=== PATIENT | male | born 1970 | race Caucasian/White ===

== ENCOUNTER 2017-08-09 10:59 | Inpatient (IN) | payer OTHER ==
[2017-08-09] MEDS ORDERED: NORMAL SALINE 1000 ML 1,000 ML IV PRN ×2 (11:28→14:46)
[2017-08-09] MEDS ORDERED: ONDANSETRON HCL INJ/PF 4 MG/2 ML SDV IV ONE (11:28)
[2017-08-09] MEDS ORDERED: MORPHINE SULFATE 10 MG/ML INJ IV ONE ×2 (11:28→14:44)
--- NOTE | 2017-08-09 11:38 | ER Document Report ---
ED Medical Screen (RME) - General Chief Complaint: Abdominal Pain Stated Complaint: ABDOMINAL PAIN Time Seen by Provider: 08/09/17 11:09 Mode of Arrival: Ambulatory Information source: Patient TRAVEL OUTSIDE OF THE [place] IN LAST 30 DAYS: No - HPI Patient complains to provider of: Left lower quadrant abdominal pain Notes: 08/09/17 11:38 Patient is a 47-year-old male with a history of left lower quadrant abdominal pain 4 days, history of diverticulitis in the past - Related Data Allergies/Adverse Reactions: meperidine [From Demerol] Allergy (Verified 08/09/17 11:08) Past Medical History - Social History Chew tobacco use (# tins/day): Yes Frequency of alcohol use: None Drug Abuse: None Renal/ Medical History: Denies: Hx Peritoneal Dialysis Past Surgical History: Reports: Hx Appendectomy, Hx Orthopedic Surgery, Hx Testicular Surgery - Immunizations Hx Diphtheria, Pertussis, Tetanus Vaccination: Yes Physical Exam - Vital signs Vitals: Temp Pulse Resp BP Pulse Ox 98.6 F 86 16 147/80 H 97 08/09/17 11:02 08/09/17 11:02 08/09/17 11:02 08/09/17 11:02 08/09/17 11:02 Course - Vital Signs Vital signs: Temp Pulse Resp BP Pulse Ox 98.6 F 86 16 147/80 H 97 08/09/17 11:02 08/09/17 11:02 08/09/17 11:02 08/09/17 11:02 08/09/17 11:02
[2017-08-09 12:12] LABS: ABSOLUTE BASOPHILS # (AUTO) 0.2 10^3/uL (0.0-0.2); ABSOLUTE EOSINOPHILS # (AUTO) 0.2 10^3/uL (0.0-0.6); ABSOLUTE LYMPHOCYTES (AUTO) 1.9 10^3/uL (0.5-4.7); ABSOLUTE MONOCYTES (AUTO) 1.5 10^3/uL (0.1-1.4); BASOPHILS % (AUTO) 1.1 % (0-2); EOSINOPHILS % (AUTO) 1.2 % (0-6); HEMATOCRIT 50.7 % (37.9-51.0); HEMOGLOBIN 17.6 g/dL (13.5-17.0); HGB HCT DIFFERENCE 2.1; LYMPHOCYTES % (AUTO) 12.8 % (13-45); MEAN CORPUSCULAR HEMOGLOBIN 30.1 pg (27.0-33.4); MEAN CORPUSCULAR HGB CONC 34.8 g/dL (32.0-36.0); MEAN CORPUSCULAR VOLUME 87 fl (80-97); MONOCYTES % (AUTO) 10.3 % (3-13); RED BLOOD COUNT 5.86 10^6/uL (4.35-5.55); SEGMENTED NEUTROPHILS % (AUTO) 74.6 % (42-78); WHITE BLOOD COUNT 14.7 10^3/uL (4.0-10.5)
[2017-08-09 12:21] LABS: APPEARANCE,URINE CLEAR; BILIRUBIN,URINE NEGATIVE (NEGATIVE); GLUCOSE, URINE NEGATIVE (NEGATIVE); KETONES,URINE NEGATIVE (NEGATIVE); LEUKOCYTE ESTERASE,URINE NEGATIVE (NEGATIVE); NITRITE,URINE NEGATIVE (NEGATIVE); PROTEIN,URINE NEGATIVE (NEGATIVE); URINE SPECIFIC GRAVITY 1.026; UROBILINOGEN,URINE NEGATIVE mg/dL (<2.0)
[2017-08-09 12:30] LABS: ALANINE AMINOTRANSFERASE 38 U/L (21-72); ALBUMIN 4.7 g/dL (3.5-5.0); ALKALINE PHOSPHATASE 68 U/L (38-126); ANION GAP 11 (5-19); ASPARTATE AMINO TRANSFERASE 28 U/L (17-59); BILIRUBIN,DIRECT 0.7 mg/dL (0.0-0.4); BILIRUBIN,TOTAL 2.4 mg/dL (0.2-1.3); BLOOD UREA NITROGEN 14 mg/dL (7-20); CALCIUM 10.1 mg/dL (8.4-10.2); CARBON DIOXIDE 26 mmol/L (22-30); CHLORIDE 105 mmol/L (98-107); CREATININE RESULT 0.97 mg/dL (0.52-1.25); GLUCOSE 106 mg/dL (75-110); LIPASE 70.1 U/L (23-300); POTASSIUM 4.2 mmol/L (3.6-5.0); SODIUM 141.7 mmol/L (137-145)
--- NOTE | 2017-08-09 12:35 | ER Document Report ---
ED General - General Chief Complaint: Abdominal Pain Stated Complaint: ABDOMINAL PAIN Time Seen by Provider: 08/09/17 11:09 Mode of Arrival: Ambulatory TRAVEL OUTSIDE OF THE [place] IN LAST 30 DAYS: No - HPI Notes: Patient is a 47-year-old male who presents the ED complaining of left lower quadrant pain 4 days. Patient states that the pain is relatively constant and sharp. The pain does not radiate. Movement and pressure make the pain worse. He has not found anything that improves his pain. Patient does not note eating any popcorn or seeds. Patient has a history of diverticulitis with the last episode about 10 years ago which required hospitalization. Patient states that the pain now mimics the pain experienced in the past. Patient is otherwise still eating and drinking without any problems. He still urinating and having normal bowel movements. His last colonoscopy was about 10 years ago during his previous colon issues. He has not noticed any hematochezia or melena. Denies any headache, fever, neck pain, URI, sore throat, chest pain, palpitations, syncope, cough, shortness of breath, wheeze, dyspnea, nausea/vomiting/diarrhea, urinary retention, dysuria, hematuria, back pain, loss of control of bowel or bladder, numbness/tingling, saddle anesthesia, muscle paralysis/weakness, or rash. Denies recent illness. - Related Data Allergies/Adverse Reactions: meperidine [From Demerol] Allergy (Verified 08/09/17 11:08) Past Medical History - General Information source: Patient - Social History Smoking Status: Never Smoker Chew tobacco use (# tins/day): Yes Frequency of alcohol use: None Drug Abuse: None Family History: Reviewed & Not Pertinent Patient has suicidal ideation: No Patient has homicidal ideation: No Renal/ Medical History: Denies: Hx Peritoneal Dialysis Past Surgical History: Reports: Hx Appendectomy, Hx Orthopedic Surgery, Hx Testicular Surgery - Immunizations Hx Diphtheria, Pertussis, Tetanus Vaccination: Yes Review of Systems - Review of Systems Notes: REVIEW OF SYSTEMS: CONSTITUTIONAL : Denies fever, chills, or sweats. Denies recent illness. EENT: Denies eye, ear, throat, or mouth pain or symptoms. Denies nasal or sinus congestion or discharge. Denies throat, tongue, or mouth swelling or difficulty swallowing. CARDIOVASCULAR: Denies chest pain. Denies palpitations or racing or irregular heart beat. Denies ankle edema. RESPIRATORY: Denies cough, cold, or chest congestion. Denies shortness of breath, difficulty breathing, or wheezing. GASTROINTESTINAL: see hpi GENITOURINARY: Denies difficulty urinating, painful urination, burning, frequency, blood in urine, or discharge. MUSCULOSKELETAL: Denies back or neck pain or stiffness. Denies joint pain or swelling. SKIN: Denies rash, lesions or sores. NEUROLOGICAL: Denies confusion or altered mental status. Denies passing out or loss of consciousness. Denies dizziness or lightheadedness. Denies headache. Denies weakness or paralysis or loss of use of either side. Denies problems with gait or speech. Denies sensory loss, numbness, or tingling. ALL OTHER SYSTEMS REVIEWED AND NEGATIVE. Dictation was performed using [email or web address] voice recognition software Physical Exam - Vital signs Vitals: Temp Pulse Resp BP Pulse Ox 98.6 F 86 16 147/80 H 97 08/09/17 11:02 08/09/17 11:02 08/09/17 11:02 08/09/17 11:02 08/09/17 11:02 Notes: PHYSICAL EXAMINATION: GENERAL: Well-appearing, well-nourished and in no acute distress. Eyes: nonicteric. PERRLA. EOMI b/l. NECK: Normal range of motion, supple without lymphadenopathy. No rigidity. LUNGS: Breath sounds clear to auscultation bilaterally and equal. No wheezes rales or rhonchi. HEART: Regular rate and rhythm without murmurs, rubs, gallops. ABDOMEN: Soft, nondistended abdomen. No rebound. No masses appreciated. Normal bowel sounds present. No CVA tenderness bilaterally. + tenderness to the LLQ with mild guarding. Musculoskeletal: LE's b/l: FROM to passive/active. Strength 5+/5. No focal deficits. Extremities: No cyanosis, clubbing, or edema b/l. Peripheral pulses 2+. Capillary refill less than 3 seconds. NEUROLOGICAL: Normal speech, normal gait. Normal sensory, motor exams PSYCH: Normal mood, normal affect. SKIN: Warm, Dry, normal turgor, no rashes or lesions noted. Course - Re-evaluation Re-evalutation: 08/09/17 14:46 Patient is an afebrile, well-hydrated, 47-year-old male who presents the ED with diverticulitis without perforation or abscess. Vitals are stable. PE otherwise unremarkable. Patient does have a white count of 14.7. Reviewed case with Dr. Lyman (surgeon) who recommends medical admission and he will consult in the ED although he does not believe surgery is warranted at this time. Morphine IV given. Cipro/Flagyl IV started. Pt made NPO. Fluids running. Lorraine Weiss NP (hospitalist) accepted patient to medical floor. - Vital Signs Vital signs: Temp Pulse Resp BP Pulse Ox 98.6 F 86 16 147/80 H 97 08/09/17 11:02 08/09/17 11:02 08/09/17 11:02 08/09/17 11:02 08/09/17 11:02 - Laboratory Result Diagrams: 08/09/17 11:43 08/09/17 11:43 Laboratory results interpreted by me: 08/09/17 08/09/17 08/09/17 11:43 11:43 11:43 WBC 14.7 H RBC 5.86 H Hgb 17.6 H Lymphocytes % 12.8 L Absolute Neutrophils 11.0 H Absolute Monocytes 1.5 H Total Bilirubin 2.4 H Direct Bilirubin 0.7 H Urine Blood SMALL H Discharge - Discharge Clinical Impression: Diverticulitis Qualifiers: Diverticulitis site: unspecified part of intestinal tract Diverticulitis bleeding: without bleeding Diverticulitis complication: without perforation or abscess Qualified Code(s): K57.92 - Diverticulitis of intestine, part unspecified, without perforation or abscess without bleeding Condition: Stable Disposition: ADMITTED INPATIENT Admitting Provider: Hospitalist - Lorraine Weiss NP Unit Admitted: Medical Floor
--- NOTE | 2017-08-09 14:03 | RADIOLOGY REPORT (SQ) ---
EXAM DESCRIPTION: CT ABD/PELVIS WITH IV ONLY COMPLETED DATE/TIME: 08/09/2017 1:09 pm REASON FOR STUDY: LLQ pain COMPARISON: None. TECHNIQUE: CT scan of the abdomen and pelvis performed using helical scanning technique with dynamic intravenous contrast injection. No oral contrast. Images reviewed with lung, soft tissue, and bone windows. Reconstructed coronal and sagittal MPR images reviewed. Delayed images for evaluation of the urinary system also acquired. All images stored on PACS. All CT scanners at this facility use dose modulation, iterative reconstruction, and/or weight based d osing when appropriate to reduce radiation dose to as low as reasonably achievable (ALARA). [facility]: Dose Right [facility]: CareDose [facility]: Dose Right [facility]: Teradose 4D [facility]: [employer] CONTRAST TYPE AND DOSE: contrast/concentration: Isovue 370.00 mg/ml; Total Contrast Delivered: 91.0 ml; Total Saline Delivered: 60.0 ml RENAL FUNCTION: Creatinine 0.97 RADIATION DOSE: Up-to-date CT equipment and radiation dose reduction techniques were employed. CTDIv ol: 14.9 - 19.2 mGy. DLP: 1901 mGy-cm.. LIMITATIONS: None. FINDINGS: The distal descending and proximal sigmoid colon are abnormal, with wall thickening, lumin al narrowing, and stranding in the surrounding fat from diverticulitis. No adjacent abscess. No maxx e intraperitoneal air. Trace pelvic cul-de-sac fluid. These changes are best shown on axial images 52-70, and coronal images 38-42. Remainder of the gastrointestinal tract is otherwise unremarkable. Post appendectomy. LOWER CHEST: No significant findings. No nodules or infiltrates. LIVER: Normal size. No masses. No dilated ducts. There are multiple less than 5 mm hypodensities in the liver loop most likely tiny hepatic cysts. SPLEEN: Normal size. No focal lesions. PANCREAS: No masses. No significant calcifications. No adjacent inflammation or peripancreatic fluid collections. Pancreatic duct not dilated. GALLBLADDER: No identified stones by CT criteria. No inflammatory changes to suggest cholecystitis. ADRENAL GLANDS: No significant masses or asymmetry. RIGHT KIDNEY AND URETER: No solid masses. 1 cm right lower pole renal cortical cyst No significant c alcifications. No hydronephrosis or hydroureter. LEFT KIDNEY AND URETER: No solid masses. No significant calcifications. No hydronephrosis or hydr oureter. AORTA AND VESSELS: No aneurysm. No dissection. Renal arteries, SMA, celiac without stenosis. RETROPERITONEUM: No retroperitoneal adenopathy, hemorrhage or masses. BOWEL AND PERITONEAL CAVITY: As above. APPENDIX: Surgically absent PELVIS: No mass. Trace cul-de-sac fluid. Normal bladder. ABDOMINAL WALL: No masses. No hernias. BONES: Degenerative disc changes lower lumbar spine. OTHER: No other significant finding. IMPRESSION: Distal descending/ proximal sigmoid colon diverticulitis. No abscess. TECHNICAL DOCUMENTATION: JOB ID: [id number] Quality ID # [id number]: Final reports with documentation of one or more dose reduction techniques (e.g., Au tomated exposure control, adjustment of the mA and/or kV according to patient size, use of iterative reconstruction technique) 2010 [employer]- All Rights Reserved
[2017-08-09] MEDS ORDERED: CIPROFLOXACIN 400 MG/D5W RTU 400 MG/200 ML RTUPB IV ONE (14:13)
[2017-08-09] MEDS ORDERED: METRONIDAZOLE 500 MG/NS RTU 100 ML IV ONE (14:15)
[2017-08-09] MEDS ORDERED: NORMAL SALINE 1000 ML 1,000 ML IV ONE (14:19)
[2017-08-09] MEDS ORDERED: ONDANSETRON HCL INJ/PF 4 MG/2 ML SDV IV PRN (14:46)
[2017-08-09] MEDS ORDERED: ACETAMINOPHEN 325 MG TABLET PO PRN (14:46)
[2017-08-09] MEDS ORDERED: MORPHINE SULFATE 10 MG/ML INJ IV PRN (14:46)
[2017-08-09] MEDS: HYDROMORPHONE HCL INJ/PF 2 MG/ML AMPULE IV PRN ×2 (15:47→20:28)
--- NOTE | 2017-08-09 15:59 | PDOC H&P ---
History of Present Illness Admission Date/PCP: 08/09/17 15:30 CHAITANYA MUHAMMAD MD Patient complains of: Left lower quadrant abdominal pain History of Present Illness: HORACE GREENBERG is a 47 year old male who presents to [facility] ED complaining of left lower quadrant pain 4 days. Patient states that the pain is relatively constant and sharp. The pain does not radiate. Movement and pressure make the pain worse. He has not found anything that improves his pain. Patient does not note eating any popcorn or seeds. Patient has a history of diverticulitis with the last episode about 10 years ago which required hospitalization. Patient states that the pain now mimics the pain experienced in the past. Patient is otherwise still eating and drinking without any problems. He still urinating and having normal bowel movements. His last colonoscopy was about 10 years ago during his previous colon issues. He has not noticed any hematochezia or melena. Denies any headache, fever, neck pain, URI, sore throat, chest pain, palpitations, syncope, cough, shortness of breath, wheeze, dyspnea, nausea/vomiting/diarrhea, urinary retention, dysuria, hematuria, back pain, loss of control of bowel or bladder, numbness/tingling, saddle anesthesia, muscle paralysis/weakness, or rash. Denies recent illness. Past Medical History Cardiac Medical History: Reports: None Pulmonary Medical History: Reports: None EENT Medical History: Reports: None Neurological Medical History: Reports: None Endocrine Medical History: Reports: None Renal/ Medical History: Reports: None Malignancy Medical History: Reports: None GI Medical History: Reports: Other - Prior history of diverticulitis Musculoskeltal Medical History: Reports: None Skin Medical History: Reports: None Psychiatric Medical History: Reports: None Traumatic Medical History: Reports: None Hematology: Reports: None Infectious Medical History: Reports: None Past Surgical History Past Surgical History: Reports: Appendectomy, Orthopedic Surgery Social History Information Source: Patient Lives with: Family Smoking Status: Former Smoker Number of Years Smokin Last Time Smoked: 4 yrs ago Frequency of Alcohol Use: Occasional Hx Recreational Drug Use: No Hx Prescription Drug Abuse: No - Advance Directive Resuscitation Status: Full Code Surrogate healthcare decision maker:: , Mamta Family History Family History: Hypertension, Thyroid Disfunction Parental Family History Reviewed: Yes Children Family History Reviewed: Yes Sibling(s) Family History Reviewed.: Yes Medication/Allergy Home Medications: No Home Medications 08/09/17 Allergies/Adverse Reactions: meperidine [From Demerol] Allergy (Verified 08/09/17 11:08) Review of Systems Constitutional: PRESENT: chills, fever(s) Eyes: ABSENT: visual disturbances Ears: ABSENT: hearing changes Cardiovascular: ABSENT: chest pain, dyspnea on exertion, edema, orthropnea, palpitations Respiratory: ABSENT: cough, hemoptysis Gastrointestinal: PRESENT: abdominal pain, nausea. ABSENT: constipation, diarrhea, hematemesis, hematochezia, vomiting Genitourinary: ABSENT: dysuria, hematuria Musculoskeletal: ABSENT: joint swelling Integumentary: ABSENT: rash, wounds Neurological: ABSENT: abnormal gait, abnormal speech, confusion, dizziness, focal weakness, syncope Psychiatric: ABSENT: anxiety, depression, homidical ideation, suicidal ideation Endocrine: ABSENT: cold intolerance, heat intolerance, polydipsia, polyuria Hematologic/Lymphatic: ABSENT: easy bleeding, easy bruising Physical Exam Vital Signs: Temp Pulse Resp BP Pulse Ox 98.6 F 86 16 147/80 H 97 08/09/17 11:02 08/09/17 11:02 08/09/17 11:02 08/09/17 11:02 08/09/17 11:02 General appearance: PRESENT: no acute distress, obese, well-developed, well- nourished Head exam: PRESENT: atraumatic, normocephalic Eye exam: PRESENT: conjunctiva pink, EOMI, PERRLA. ABSENT: scleral icterus Ear exam: PRESENT: normal external ear exam Neck exam: ABSENT: carotid bruit, JVD, lymphadenopathy, thyromegaly Respiratory exam: PRESENT: clear to auscultation timbo. ABSENT: rales, rhonchi, wheezes Cardiovascular exam: PRESENT: RRR. ABSENT: diastolic murmur, rubs, systolic murmur Pulses: PRESENT: normal dorsalis pedis pul Vascular exam: PRESENT: normal capillary refill GI/Abdominal exam: PRESENT: normal bowel sounds, soft, tenderness - left lower quadrant to palpation. ABSENT: distended, guarding, mass, organolmegaly, rebound Rectal exam: PRESENT: deferred Extremities exam: PRESENT: full ROM. ABSENT: calf tenderness, clubbing, pedal edema Neurological exam: PRESENT: alert, awake, oriented to person, oriented to place , oriented to time, oriented to situation, CN II-XII grossly intact. ABSENT: motor sensory deficit Psychiatric exam: PRESENT: appropriate affect, normal mood. ABSENT: homicidal ideation, suicidal ideation Skin exam: PRESENT: dry, intact, warm. ABSENT: cyanosis, rash Results Impressions: Abdomen/Pelvis CT 08/09/17 11:28 IMPRESSION: Distal descending/ proximal sigmoid colon diverticulitis. No abscess. Assessment & Plan - Diagnosis (1) Acute diverticulitis Is this a current diagnosis for this admission?: Yes Plan: NPO. IV fluids, antibiotics and analgesia. Surgical consult. Prior history of diverticulitis 10 yrs ago (2) Nausea Is this a current diagnosis for this admission?: Yes Plan: PRN zofran (3) DVT prophylaxis Is this a current diagnosis for this admission?: Yes Plan: Lovenox and teds, may be out of bed with assistance - Time Time Spent: 50 to 70 Minutes Critical Time spent with patient: 25-34 minutes Medications reviewed and adjusted accordingly: Yes
[2017-08-09] MEDS ORDERED: ENOXAPARIN SODIUM INJ 40 MG/0.4 ML DISP.SYRIN SUBCUT ONE (16:00)
[2017-08-09] MEDS ORDERED: METRONIDAZOLE 500 MG/NS RTU 100 ML IV SCH (18:00)
[2017-08-09] MEDS: PIPERACILLIN SODIUM/TAZOBACTAM 4.5 GM in NORMAL SALINE 100 ML IV SCH (18:00)
[2017-08-09] MEDS ORDERED: CIPROFLOXACIN 400 MG/D5W RTU 400 MG/200 ML RTUPB IV SCH (22:00)
[2017-08-09] MEDS: FAMOTIDINE 20 MG TABLET PO SCH (22:00)
[2017-08-10] MEDS: PIPERACILLIN SODIUM/TAZOBACTAM 4.5 GM in NORMAL SALINE 100 ML IV SCH ×5 (01:07→23:59)
[2017-08-10] MEDS: HYDROMORPHONE HCL INJ/PF 2 MG/ML AMPULE IV PRN ×3 (01:11→22:08)
[2017-08-10 05:34] LABS: ABSOLUTE EOSINOPHILS # (AUTO) 0.3 10^3/uL (0.0-0.6); ABSOLUTE LYMPHOCYTES (AUTO) 2.4 10^3/uL (0.5-4.7); ABSOLUTE NEUT (AUTO) 5.3 10^3/uL (1.7-8.2); BASOPHILS % (AUTO) 0.5 % (0-2); EOSINOPHILS % (AUTO) 2.8 % (0-6); HEMATOCRIT 44.3 % (37.9-51.0); HGB HCT DIFFERENCE 1.3; LYMPHOCYTES % (AUTO) 26.4 % (13-45); MEAN CORPUSCULAR HEMOGLOBIN 30.1 pg (27.0-33.4); MEAN CORPUSCULAR HGB CONC 34.3 g/dL (32.0-36.0); MEAN CORPUSCULAR VOLUME 88 fl (80-97); MONOCYTES % (AUTO) 11.5 % (3-13); RED BLOOD COUNT 5.05 10^6/uL (4.35-5.55); RED CELL DISTRIBUTION WIDTH 14.1 % (11.5-14.0); SEGMENTED NEUTROPHILS % (AUTO) 58.8 % (42-78); WHITE BLOOD COUNT 9.1 10^3/uL (4.0-10.5)
[2017-08-10 05:41] LABS: HEMOGLOBIN 15.2 g/dL (13.5-17.0)
[2017-08-10 05:53] LABS: ANION GAP 7 (5-19); BLOOD UREA NITROGEN 11 mg/dL (7-20); CALCIUM 9.4 mg/dL (8.4-10.2); CARBON DIOXIDE 25 mmol/L (22-30); CHLORIDE 108 mmol/L (98-107); CREATININE RESULT 1.04 mg/dL (0.52-1.25); GLUCOSE 91 mg/dL (75-110); MAGNESIUM 2.1 mg/dL (1.6-2.3); POTASSIUM 4.4 mmol/L (3.6-5.0); SODIUM 139.7 mmol/L (137-145)
[2017-08-10] MEDS: FAMOTIDINE 20 MG TABLET PO SCH ×2 (10:10→22:08)
[2017-08-10] MEDS: ENOXAPARIN SODIUM INJ 40 MG/0.4 ML DISP.SYRIN SUBCUT SCH (10:10)
--- NOTE | 2017-08-10 16:03 | PDOC PROGRESS REPORT ---
Subjective Progress Note for:: 08/10/17 Subjective:: Abdominal pain is much better. No nausea or vomiting. No diarrhea. No melena hematochezia or hematemesis. Patient feels hungry and wants to eat. No chills fever nor respiratory distress. Physical Exam Vital Signs: Temp Pulse Resp BP Pulse Ox 98.3 F 48 L 18 139/73 H 100 08/10/17 11:21 08/10/17 11:21 08/10/17 11:21 08/10/17 11:21 08/10/17 11:21 Intake & Output 08/09/17 08/10/17 08/11/17 06:59 06:59 06:59 Intake Total 6215 Balance 6215 Weight 105.9 kg General appearance: PRESENT: no acute distress, cooperative Head exam: PRESENT: normocephalic Eye exam: PRESENT: EOMI Mouth exam: PRESENT: moist, neck supple Neck exam: ABSENT: JVD Respiratory exam: PRESENT: clear to auscultation timbo. ABSENT: rhonchi, wheezes Cardiovascular exam: PRESENT: RRR. ABSENT: gallop GI/Abdominal exam: PRESENT: hyperactive bowel sounds - Mildly, soft, tenderness - Mild in the left lower quadrant. ABSENT: distended Extremities exam: ABSENT: pedal edema Neurological exam: PRESENT: alert, awake, oriented to person, oriented to place , oriented to time, oriented to situation Skin exam: PRESENT: dry, warm. ABSENT: cyanosis Results Laboratory Results: 08/10/17 05:05 08/10/17 05:05 08/10/17 08/10/17 05:05 05:05 WBC 9.1 RBC 5.05 Hgb 15.2 D Hct 44.3 MCV 88 MCH 30.1 MCHC 34.3 RDW 14.1 H Plt Count 245 Seg Neutrophils % 58.8 Lymphocytes % 26.4 Monocytes % 11.5 Eosinophils % 2.8 Basophils % 0.5 Absolute Neutrophils 5.3 Absolute Lymphocytes 2.4 Absolute Monocytes 1.0 Absolute Eosinophils 0.3 Absolute Basophils 0.0 Sodium 139.7 Potassium 4.4 Chloride 108 H Carbon Dioxide 25 Anion Gap 7 BUN 11 Creatinine 1.04 Est GFR ( Amer) > 60 Est GFR (Non-Af Amer) > 60 Glucose 91 Calcium 9.4 Magnesium 2.1 Impressions: Abdomen/Pelvis CT 08/09/17 11:28 IMPRESSION: Distal descending/ proximal sigmoid colon diverticulitis. No abscess. Assessment & Plan - Diagnosis (1) Acute diverticulitis Is this a current diagnosis for this admission?: Yes (2) Nausea Is this a current diagnosis for this admission?: Yes - Time Time Spent with patient: 25-34 minutes - Plan Summary Plan Summary: Continue current antibiotics. Continue supportive care. A new IV hydration for now. We will try clear liquid diet today. If tolerated we will advance and possible discharge in the morning if patient continues to improve.
[2017-08-11] MEDS: PIPERACILLIN SODIUM/TAZOBACTAM 4.5 GM in NORMAL SALINE 100 ML IV SCH (05:43)
[2017-08-11 07:50] VITALS: BP 144/79
--- NOTE | 2017-08-11 09:13 | PDOC DISCHARGE SUMMARY ---
General - Admit/Disc Date/PCP Admission Date/Primary Care Provider: 08/09/17 14:46 CHAITANYA MUHAMMAD MD Discharge Date: 08/11/17 - Discharge Diagnosis (1) Acute diverticulitis Is this a current diagnosis for this admission?: Yes (2) Nausea Is this a current diagnosis for this admission?: Yes - Additional Information Resuscitation Status: Full Code Discharge Diet: Other (Comments) - Soft mechanical diet Discharge Activity: Activity As Tolerated, Balance Activity w/Rest Home Medications: Levofloxacin [Levaquin 750 mg Tablet] 750 mg PO DAILY #12 tab 08/11/17 Metronidazole [Flagyl 500 mg Tablet] 500 mg PO TID #36 tablet 08/11/17 Oxycodone HCl/Acetaminophen [Percocet 5-325 mg Tablet] 1 tab PO Q6H PRN #12 tab 08/11/17 Additional Information: Return to the emergency room if symptoms recur History of Present Illness Patient complains of: Left lower quadrant pain History of Present Illness: HORACE GREENBERG is a 47 year old male who presents to [facility]'s ED complaining of left lower quadrant pain 4 days. Patient states that the pain is relatively constant and sharp. The pain does not radiate. Movement and pressure make the pain worse. He has not found anything that improves his pain. Patient does not note eating any popcorn or seeds. Patient has a history of diverticulitis with the last episode about 10 years ago which required hospitalization. Patient states that the pain now mimics the pain experienced in the past. Patient is otherwise still eating and drinking without any problems. He still urinating and having normal bowel movements. His last colonoscopy was about 10 years ago during his previous colon issues. He has not noticed any hematochezia or melena. Denies any headache, fever, neck pain, URI, sore throat, chest pain, palpitations, syncope, cough, shortness of breath, wheeze, dyspnea, nausea/vomiting/diarrhea, urinary retention, dysuria, hematuria, back pain, loss of control of bowel or bladder, numbness/tingling, saddle anesthesia, muscle paralysis/weakness, or rash. Denies recent illness. Hospital Course Hospital Course: The patient was admitted to telemetry floor. Patient was given intravenous fluids and was kept n.p.o. for 24 hours. Spectrum antibiotic with Zosyn was started. CT scan findings of diverticulitis. The following morning the patient improved and was begun on clear liquids. WBC was monitored and eventually normalized. The patient continues to improve clinically. After 48 hours abdominal pain much much better according to the patient and he is back to baseline. He requested to be discharged and continue treatment on an outpatient basis. Patient tolerated oral intake well without diarrhea or vomiting. No reported rectal bleeding. The rest of the hospital stays unremarkable. Patient was eventually discharged home with instructions to return back to the hospital if symptoms recur. Physical Exam Vital Signs: Temp Pulse Resp BP Pulse Ox 97.3 F 57 L 18 144/79 H 100 08/11/17 07:13 08/11/17 07:13 08/11/17 07:13 08/11/17 07:13 08/11/17 07:13 Intake & Output 08/10/17 08/11/17 08/12/17 06:59 06:59 06:59 Intake Total 6215 3455 Balance 6215 3455 Weight 105.9 kg 105.9 kg General appearance: PRESENT: no acute distress, cooperative Head exam: PRESENT: normocephalic Eye exam: PRESENT: EOMI Mouth exam: PRESENT: moist, neck supple Neck exam: ABSENT: JVD Respiratory exam: PRESENT: clear to auscultation timbo Cardiovascular exam: PRESENT: RRR GI/Abdominal exam: PRESENT: normal bowel sounds, soft, tenderness - Minimal and improved compared to yesterday.. ABSENT: distended, rebound Extremities exam: ABSENT: pedal edema Neurological exam: PRESENT: alert, awake, oriented to person, oriented to place , oriented to time, oriented to situation Skin exam: PRESENT: dry, warm. ABSENT: cyanosis Results Laboratory Results: 08/10/17 05:05 08/10/17 05:05 Impressions: Abdomen/Pelvis CT 08/09/17 11:28 IMPRESSION: Distal descending/ proximal sigmoid colon diverticulitis. No abscess. Qualifiers PATEINT BEING DISCHARGED WITH ANY OF THE FOLLOWING DIAGNOSIS?: No Plan Discharge Plan: Follow-up with primary care physician in 1 week. Time Spent: Less than 30 Minutes
[2017-08-11] MEDS: ENOXAPARIN SODIUM INJ 40 MG/0.4 ML DISP.SYRIN SUBCUT SCH (09:20)
[2017-08-11] MEDS: FAMOTIDINE 20 MG TABLET PO SCH (09:20)
== END 2017-08-11 09:49 | disposition home or self-care (01) | DRG 392 ==
LOC: ER 10:59 → EH 14:46 → UNDOADMIN 15:30 → EH 15:30 → 4N 17:30
PROVIDERS: ADMIT Family Medicine; ATTEND Family Medicine
DX: K57.32 Diverticulitis of large intestine without perforation or abscess without bleeding (principal); Z87.891 Personal history of nicotine dependence; Z88.6 Allergy status to analgesic agent; Z82.49 Family history of ischemic heart disease and other diseases of the circulatory system
CPT/HCPCS: 36415; 74177; 80048; 80053; 81001; 83605; 83690; 83735; 85025; 87040; 87086; 96374; 96375; 99285; J0744; J1170; J1650; J2270; J2405; J2543; J7030

== ENCOUNTER 2018-07-04 10:35 | Emergency (ER) | payer OTHER ==
[2018-07-04] MEDS ORDERED: FENTANYL CITRATE INJ/PF 100 MCG/2 ML AMPUL IV ONE (10:48)
[2018-07-04] MEDS ORDERED: NORMAL SALINE 1000 ML 1,000 ML IV ONE (10:49)
[2018-07-04] MEDS ORDERED: ONDANSETRON HCL INJ/PF 4 MG/2 ML SDV IV ONE (10:53)
--- NOTE | 2018-07-04 10:53 | ER Document Report ---
ED Medical Screen (RME) - General Chief Complaint: Testicular Pain Stated Complaint: ABDOMINAL/TESTICAL PAIN Time Seen by Provider: 07/04/18 10:47 TRAVEL OUTSIDE OF THE [place] IN LAST 30 DAYS: No - HPI Patient complains to provider of: scrotal pain Onset: Other - 48-year-old male with past medical history significant for 2 torsions in the past, presents for evaluation of terrible left lower quadrant abdominal pain with associated testicular pain. He notes that this feels similar to a torsion that has had in the past, it aches into his lower abdomen but it is primarily in the scrotum. Denies any trauma to the scrotum, denies any recent change in sexual partners. - Related Data Allergies/Adverse Reactions: meperidine [From Demerol] Allergy (Verified 08/09/17 11:08) Past Medical History Renal/ Medical History: Denies: Hx Peritoneal Dialysis Past Surgical History: Reports: Hx Appendectomy, Hx Orthopedic Surgery, Hx Testicular Surgery - Immunizations Hx Diphtheria, Pertussis, Tetanus Vaccination: Yes History of Influenza Vaccine for 08/2017 - 01/2018 Season: Refused Physical Exam - Vital signs Vitals: Temp Pulse Resp BP Pulse Ox 98.0 F 71 18 139/88 H 98 07/04/18 10:42 07/04/18 10:42 07/04/18 10:42 07/04/18 10:42 07/04/18 10:42 - Notes Notes: This 48-year-old man is in obvious discomfort, he is hunched over and unable to sit down due to pain. On examination he does have what appears to be a elevated left sided testicle, it is markedly tender to palpation, it is profoundly uncomfortable with movement. Course - Re-evaluation Re-evalutation: 07/04/18 10:51 48-year-old male who presents with profound pain in the left lower quadrant of the abdomen as well as into the scrotum. It is twice a torsion is in the past which undergone repair 30 years prior. On examination he does have a slightly elevated profoundly tender left testicle. Do have a high clinical concern for possible torsion, patient undergo ultrasound at this time for possible torsion. He has had 3 days of symptoms leading up to this, called ultrasound who is agrees to do this emergently. Patient be given fentanyl for pain control and transferred to the radiology department for evaluation. - Vital Signs Vital signs: Temp Pulse Resp BP Pulse Ox 98.0 F 71 18 139/88 H 98 07/04/18 10:42 07/04/18 10:42 07/04/18 10:42 07/04/18 10:42 07/04/18 10:42 Doctor's Discharge - Discharge Referrals: MOIRA GARRETT MD [Primary Care Provider] - Follow up as needed
[2018-07-04] MEDS ORDERED: MORPHINE SULFATE 10 MG/ML INJ IV ONE (11:26)
[2018-07-04 11:30] LABS: ABSOLUTE BASOPHILS # (AUTO) 0.1 10^3/uL (0.0-0.2); ABSOLUTE EOSINOPHILS # (AUTO) 0.4 10^3/uL (0.0-0.6); ABSOLUTE LYMPHOCYTES (AUTO) 2.7 10^3/uL (0.5-4.7); ABSOLUTE MONOCYTES (AUTO) 0.6 10^3/uL (0.1-1.4); BASOPHILS % (AUTO) 1.2 % (0-2); EOSINOPHILS % (AUTO) 4.6 % (0-6); HEMATOCRIT 48.3 % (37.9-51.0); HEMOGLOBIN 16.7 g/dL (13.5-17.0); LYMPHOCYTES % (AUTO) 34.3 % (13-45); MEAN CORPUSCULAR HEMOGLOBIN 29.9 pg (27.0-33.4); MEAN CORPUSCULAR HGB CONC 34.5 g/dL (32.0-36.0); MEAN CORPUSCULAR VOLUME 87 fl (80-97); MONOCYTES % (AUTO) 8.3 % (3-13); PLATELET COUNT 288 10^3/uL (150-450); RED BLOOD COUNT 5.57 10^6/uL (4.35-5.55); RED CELL DISTRIBUTION WIDTH 14.4 % (11.5-14.0); SEGMENTED NEUTROPHILS % (AUTO) 51.6 % (42-78); TOTAL CELLS COUNTED % (AUTO) 100 %; WHITE BLOOD COUNT 7.8 10^3/uL (4.0-10.5)
--- NOTE | 2018-07-04 11:43 | RADIOLOGY REPORT (SQ) ---
EXAM DESCRIPTION: U/S SCROTUM W/DOPPLER COMPLETED DATE/TIME: 07/04/2018 11:31 am REASON FOR STUDY: torsion on left side COMPARISON: None. TECHNIQUE: Static and realtime johnson scale imaging of the scrotum and testes. Selected color Doppler and spectral images recorded to document blood flow. LIMITATIONS: None. FINDINGS: RIGHT: TESTICLE: Normal size. Normal echotexture. Normal blood flow. No mass. EPIDIDYMIS: Normal. HYDROCELE OR VARICOCELE: Small hydrocele. HERNIA OR EXTRA-TESTICULAR MASS: No. OTHER: No other significant finding. LEFT: TESTICLE: Normal size. Normal echotexture. Normal blood flow. No mass. EPIDIDYMIS: Slightly edematous and hypervascular. HYDROCELE OR VARICOCELE: Small varicocele. HERNIA OR EXTRA-TESTICULAR MASS: No. OTHER: No other significant finding. IMPRESSION: 1. NORMAL TESTICULAR ULTRASOUND. NO EVIDENCE OF TESTICULAR MASS OR TORSION. 2. SLIGHTLY EDEMATOUS LEFT EPIDIDYMIS WITH INCREASED VASCULARITY, POSSIBLE EPIDIDYMITIS. 3. SMALL RIGHT HYDROCELE. SMALL LEFT VARICOCELE. TECHNICAL DOCUMENTATION: JOB ID: [id number]- All Rights Reserved Reading location - IP/workstation name: [email or web address]
[2018-07-04 12:08] LABS: APPEARANCE,URINE CLEAR; BILIRUBIN,URINE NEGATIVE (NEGATIVE); COLOR,URINE STRAW; GLUCOSE, URINE NEGATIVE (NEGATIVE); KETONES,URINE NEGATIVE (NEGATIVE); LEUKOCYTE ESTERASE,URINE NEGATIVE (NEGATIVE); NITRITE,URINE NEGATIVE (NEGATIVE); PROTEIN,URINE NEGATIVE (NEGATIVE); URINE SPECIFIC GRAVITY 1.009; UROBILINOGEN,URINE NEGATIVE mg/dL (<2.0)
[2018-07-04 12:36] LABS: ANION GAP 10 (5-19); BLOOD UREA NITROGEN 18 mg/dL (7-20); CALCIUM 8.9 mg/dL (8.4-10.2); CARBON DIOXIDE 23 mmol/L (22-30); CHLORIDE 109 mmol/L (98-107); GLUCOSE 98 mg/dL (75-110); POTASSIUM 4.3 mmol/L (3.6-5.0); SODIUM 142.3 mmol/L (137-145)
[2018-07-04] MEDS ORDERED: DOXYCYCLINE HYCLATE 100 MG TABLET PO ONE (12:42)
[2018-07-04] MEDS ORDERED: CEFTRIAXONE INJ 1000 MG VIAL IV ONE (12:43)
[2018-07-04] MEDS ORDERED: KETOROLAC TROMETHAMINE INJ/PF 30 MG/1 ML SDV IV ONE (12:59)
--- NOTE | 2018-07-04 13:41 | ER Document Report ---
ED General - General Chief Complaint: Testicular Pain Stated Complaint: ABDOMINAL/TESTICAL PAIN Time Seen by Provider: 07/04/18 10:47 TRAVEL OUTSIDE OF THE [place] IN LAST 30 DAYS: No - HPI Patient complains to provider of: Left testicle pain Notes: Patient in for left testicle pain and inguinal pain ongoing for last 3 days. Patient does have a history of torsion in the past bilaterally as had surgery for torsion in the past. Patient denies any trauma denies any fevers chills nausea vomiting new sexual partners denies any dysuria. Patient resting comfortably upon my evaluation. - Related Data Allergies/Adverse Reactions: meperidine [From Demerol] Allergy (Verified 07/04/18 10:52) Past Medical History - Social History Smoking Status: Never Smoker Chew tobacco use (# tins/day): No Frequency of alcohol use: Rare Drug Abuse: None Family History: Hypertension, Thyroid Disfunction Patient has suicidal ideation: No Patient has homicidal ideation: No Renal/ Medical History: Denies: Hx Peritoneal Dialysis Past Surgical History: Reports: Hx Appendectomy, Hx Orthopedic Surgery - right arm, Hx Testicular Surgery - bilateral - Immunizations Hx Diphtheria, Pertussis, Tetanus Vaccination: Yes Review of Systems - Review of Systems Constitutional: No symptoms reported EENT: No symptoms reported Cardiovascular: No symptoms reported Respiratory: No symptoms reported Gastrointestinal: No symptoms reported Genitourinary: No symptoms reported Male Genitourinary: Testicular pain Musculoskeletal: No symptoms reported Skin: No symptoms reported Hematologic/Lymphatic: No symptoms reported Neurological/Psychological: No symptoms reported -: Yes All other systems reviewed and negative Physical Exam - Vital signs Vitals: Temp Pulse Resp BP Pulse Ox 98.0 F 71 18 139/88 H 98 07/04/18 10:42 07/04/18 10:42 07/04/18 10:42 07/04/18 10:42 07/04/18 10:42 Interpretation: Normal - General General appearance: Appears well, Alert - HEENT Head: Normocephalic, Atraumatic Eyes: Normal Pupils: PERRL - Respiratory Respiratory status: No respiratory distress Chest status: Nontender Breath sounds: Normal Chest palpation: Normal - Cardiovascular Rhythm: Regular Heart sounds: Normal auscultation Murmur: No - Abdominal Inspection: Normal Distension: No distension Bowel sounds: Normal Tenderness: Nontender Organomegaly: No organomegaly - Genitourinary Inspection: Normal Tenderness: Epididymis tender - Left Cremasteric reflex: Normal Scrotum: Normal - Back Back: Normal, Nontender - Extremities General upper extremity: Normal inspection, Nontender, Normal color, Normal ROM , Normal temperature General lower extremity: Normal inspection, Nontender, Normal color, Normal ROM , Normal temperature, Normal weight bearing. No: Juan R's sign - Neurological Neuro grossly intact: Yes Cognition: Normal Orientation: AAOx4 Jose Carlos Coma Scale Eye Opening: Spontaneous Jose Carlos Coma Scale Verbal: Oriented Harrington Coma Scale Motor: Obeys Commands Harrington Coma Scale Total: 15 Speech: Normal Motor strength normal: LUE, RUE, LLE, RLE Sensory: Normal - Psychological Associated symptoms: Normal affect, Normal mood - Skin Skin Temperature: Warm Skin Moisture: Dry Skin Color: Normal Course - Re-evaluation Re-evalutation: 07/04/18 15:35 Ultrasounds or signs of epididymitis this is a torsion. Patient was given a dose of Rocephin and was discharged home on doxycycline. Education about the demise was given to the patient. Patient was encouraged to use anti- inflammatories along with Tylenol. Will give patient morphine for severe pain. Patient is to follow-up primary care physician in 1-2 weeks. - Vital Signs Vital signs: Temp Pulse Resp BP Pulse Ox 98.0 F 71 18 139/88 H 98 07/04/18 10:42 07/04/18 10:42 07/04/18 10:42 07/04/18 10:42 07/04/18 10:42 - Laboratory Result Diagrams: 07/04/18 10:50 07/04/18 12:00 Laboratory results interpreted by me: 07/04/18 07/04/18 10:50 12:00 RBC 5.57 H RDW 14.4 H Chloride 109 H Discharge - Discharge Clinical Impression: Epididymitis Condition: Good Disposition: HOME, SELF-CARE Instructions: Anti-Inflammatory Medication ([facility]), Epididymitis ([facility]), Doxycycline ([facility]), Warm Packs ([facility]), Oral Narcotic Medication ([facility]) Additional Instructions: Your sounds consistent with epididymitis. Near physical examination and ultrasound are not consistent with a testicular torsion. Please take Motrin and Tylenol as prescribed. For your pain. Please use morphine for severe pain. Please make sure he finished all the antibiotics follow up with your primary care physician in 1-2 weeks. Prescriptions: Ibuprofen [Motrin 600 mg Tablet] 600 mg PO Q8HP PRN #21 tablet PRN Reason: Doxycycline Hyclate 100 mg PO BID #20 capsule Morphine Sulfate [Morphine Ir 15 Mg Tablet] 15 mg PO Q6 #15 tablet Referrals: MOIRA GARRETT MD [ACTIVE STAFF] - Follow up in 3-5 days
[2018-07-04 14:02] VITALS: BP 112/76
== END 2018-07-04 14:02 | disposition home or self-care (01) ==
LOC: ER 10:35
DX: N45.1 Epididymitis (principal); N50.812 Left testicular pain; Z88.5 Allergy status to narcotic agent
CPT/HCPCS: 36415; 87086; 85025; 80048; 81001; 76870; 93976; J3010; J1885; J2270; J0696; J2405; J7030; 96361; 96365; 96375; 99284

== ENCOUNTER 2018-07-12 18:31 | Emergency (ER) | payer OTHER ==
[2018-07-12 19:17] LABS: ABSOLUTE BASOPHILS # (AUTO) 0.1 10^3/uL (0.0-0.2); ABSOLUTE EOSINOPHILS # (AUTO) 0.2 10^3/uL (0.0-0.6); ABSOLUTE LYMPHOCYTES (AUTO) 2.3 10^3/uL (0.5-4.7); ABSOLUTE MONOCYTES (AUTO) 1.1 10^3/uL (0.1-1.4); ABSOLUTE NEUT (AUTO) 7.9 10^3/uL (1.7-8.2); BASOPHILS % (AUTO) 0.5 % (0-2); HEMATOCRIT 48.3 % (37.9-51.0); HEMOGLOBIN 16.3 g/dL (13.5-17.0); LYMPHOCYTES % (AUTO) 19.5 % (13-45); MEAN CORPUSCULAR HEMOGLOBIN 29.2 pg (27.0-33.4); MEAN CORPUSCULAR HGB CONC 33.6 g/dL (32.0-36.0); MEAN CORPUSCULAR VOLUME 87 fl (80-97); MONOCYTES % (AUTO) 9.7 % (3-13); PLATELET COUNT 253 10^3/uL (150-450); RED BLOOD COUNT 5.57 10^6/uL (4.35-5.55); RED CELL DISTRIBUTION WIDTH 14.4 % (11.5-14.0); SEGMENTED NEUTROPHILS % (AUTO) 68.3 % (42-78); TOTAL CELLS COUNTED % (AUTO) 100 %; WHITE BLOOD COUNT 11.7 10^3/uL (4.0-10.5)
[2018-07-12] MEDS ORDERED: ONDANSETRON HCL INJ/PF 4 MG/2 ML SDV IV ONE (19:28)
[2018-07-12] MEDS ORDERED: HYDROMORPHONE HCL INJ/PF 2 MG/ML AMPULE IV ONE ×2 (19:28→21:44)
--- NOTE | 2018-07-12 19:28 | ER Document Report ---
ED General - General Mode of Arrival: Ambulatory Information source: Patient <HERNANDEZ SIMMONSSUE - Last Filed: 07/13/18 02:30> <NATALYTSERNIGBATSHEVA - Last Filed: 07/13/18 02:31> - General Chief Complaint: Abdominal Pain Stated Complaint: ABDOMINAL PAIN Time Seen by Provider: 07/12/18 18:39 Notes: Patient is a 48 year old male with a history of recurrent diverticulitis presents to the emergency department complaining of left lower quadrant abdominal pain onset 2 days ago. Patient states his current pain feels similar to his previous episodes of diverticulitis and describes his pain as "very painful" which is exacerbated by sitting up. He mentions his last episode of diverticulitis was approximately 1 year ago. Patient also complains of nausea and constipation. Patient denies fevers, diarrhea, vomiting, dysuria, testicular swelling or pain. Of significance, patient was seen in the emergency department approximately 1 week ago complaining of left testicular pain and subsequently diagnosed with epididymitis. Patient was discharged with a prescription of Doxycycline which he states he has been taking. Patient states the testicular pain has completely resolved. Patient also mentions taking testosterone shots. (YANDEL SIMMONS) - Related Data Allergies/Adverse Reactions: meperidine [From Demerol] Allergy (Verified 07/12/18 18:35) Past Medical History - General Information source: Patient - Social History Smoking Status: Never Smoker Chew tobacco use (# tins/day): Yes Frequency of alcohol use: None Drug Abuse: None Family History: Hypertension, Thyroid Disfunction Patient has suicidal ideation: No Patient has homicidal ideation: No GI Medical History: Reports: Hx Diverticulitis Past Surgical History: Reports: Hx Appendectomy, Hx Orthopedic Surgery - right arm, Hx Testicular Surgery - bilateral - Immunizations Hx Diphtheria, Pertussis, Tetanus Vaccination: Yes <YANDEL SIMMONS - Last Filed: 07/13/18 02:30> Review of Systems - Review of Systems Constitutional: No symptoms reported EENT: No symptoms reported Cardiovascular: No symptoms reported Respiratory: No symptoms reported Gastrointestinal: See HPI, Abdominal pain, Nausea Genitourinary: No symptoms reported Male Genitourinary: No symptoms reported Musculoskeletal: No symptoms reported Skin: No symptoms reported Hematologic/Lymphatic: No symptoms reported Neurological/Psychological: No symptoms reported -: Yes All other systems reviewed and negative <YANDEL SIMMONS - Last Filed: 07/13/18 02:30> Physical Exam <YANDEL SIMMONS - Last Filed: 07/13/18 02:30> <NATALYTSERINGBATSHEVA - Last Filed: 07/13/18 02:31> - Vital signs Vitals: Temp Pulse Resp BP Pulse Ox 98.3 F 150 H 17 127/72 H 85 L 07/12/18 18:44 07/12/18 18:44 07/12/18 18:44 07/12/18 18:44 07/12/18 18:44 - Notes Notes: GENERAL: Alert, interacts well. No acute distress. HEAD: Normocephalic, atraumatic. EYES: Pupils equal, round, and reactive to light. Extraocular movements intact. ENT: Oral mucosa moist, tongue midline. NECK: Full range of motion. Supple. Trachea midline. LUNGS: Clear to auscultation bilaterally, no wheezes, rales, or rhonchi. No respiratory distress. HEART: Regular rate and rhythm. No murmurs, gallops, or rubs. ABDOMEN: Soft, tender to palpation to the left lower quadrant, no guarding, rigidity or rebound. Non-distended. Bowel sounds present in all 4 quadrants. EXTREMITIES: Moves all 4 extremities spontaneously. No edema, radial and dorsalis pedis pulses 2/4 bilaterally. No cyanosis. NEUROLOGICAL: Alert and oriented x3. Normal speech. PSYCH: Normal affect, normal mood. SKIN: Warm, dry, normal turgor. No rashes or lesions noted. : No testicular swelling, discoloration or tenderness to palpation. No epididymal swelling. No perineal tenderness to palpation. (YANDEL SIMMONS) Course - Laboratory Result Diagrams: 07/12/18 19:00 07/12/18 19:00 <YANDEL SIMMONS - Last Filed: 07/13/18 02:30> - Laboratory Result Diagrams: 07/12/18 19:00 07/12/18 19:00 <BATSHEVA BEDOLLA - Last Filed: 07/13/18 02:31> - Re-evaluation Re-evalutation: 07/12/18 21:44 CBC shows mild leukocytosis 11.7, CMP unremarkable, urinalysis unremarkable, CT scan of the abdomen and pelvis shows mild sigmoid diverticulitis. Patient will be started on Augmentin and Flagyl. Given pain medication and discharged to home. 07/13/18 02:31 Please note that the initial vital signs appear to be an error. When I examined the patient he was not tachycardic, patient has not been tachycardic during the rest of his visit. (BATSHEVA BEDOLLA) - Vital Signs Vital signs: Temp Pulse Resp BP Pulse Ox 97.4 F 150 H 15 110/81 96 07/12/18 22:23 07/12/18 18:44 07/12/18 22:01 07/12/18 22:01 07/12/18 22:01 - Laboratory Laboratory results interpreted by me: 07/12/18 07/12/18 19:00 19:00 WBC 11.7 H RBC 5.57 H RDW 14.4 H Total Bilirubin 1.6 H Discharge <YANDEL SIMMONS - Last Filed: 07/13/18 02:30> <BATSHEVA BEDOLLA - Last Filed: 07/13/18 02:31> - Discharge Clinical Impression: Acute diverticulitis Condition: Stable Disposition: HOME, SELF-CARE Additional Instructions: Diverticulitis You have been diagnosed as having diverticulitis. This is an inflammation of a small pouch attached to the colon, called a diverticulum. Many of these small pouches can form on the colon as you get older. They are often caused by constipation. When inflamed or infected, symptoms arise -- usually abdominal pain, constipation or diarrhea, fever, and blood in the stool. Severe diverticulitis may require hospitalization. More mild cases are usually treated with antibiotics and clear liquid diet. As you improve, a diet low in residue (one which forms little stool) is prescribed. When you are better, you should eat a high-fiber diet. Stool softeners ( like Metamucil) are usually recommended. Call the doctor or go to the hospital if there is increasing pain, vomiting , high fever, large amounts of blood passed, or if bowel movements cease. Prescriptions: Amox Tr/Potassium Clavulanate [Augmentin 875-125 Tablet] 1 tab PO BID 10 Days tablet Ondansetron [Zofran Odt 4 mg Tablet] 1 - 2 tab PO Q4H PRN #15 tab.rapdis PRN Reason: For Nausea/Vomiting Oxycodone HCl/Acetaminophen [Percocet 5-325 mg Tablet] 1 tab PO Q4H PRN #15 tablet PRN Reason: Forms: Return to Work Referrals: CHAITANYA MUHAMMAD MD [Primary Care Provider] - Follow up as needed Scribe Attestation: 07/13/18 02:31 I personally performed the services described in the documentation, reviewed and edited the documentation which was dictated to the scribe in my presence, and it accurately records my words and actions. (BATSHEVA BEDOLLA) Scribe Documentation - Scribe Written by Jarrettibe:: John Paul Ornelas, 07/12/2018 19:37 acting as scribe for :: Wang <YANDEL SIMMONS - Last Filed: 07/13/18 02:30>
[2018-07-12 19:36] LABS: ALANINE AMINOTRANSFERASE 21 U/L (21-72); ALBUMIN 4.6 g/dL (3.5-5.0); ALKALINE PHOSPHATASE 44 U/L (38-126); ANION GAP 12 (5-19); ASPARTATE AMINO TRANSFERASE 21 U/L (17-59); BILIRUBIN,DIRECT 0.3 mg/dL (0.0-0.4); BILIRUBIN,TOTAL 1.6 mg/dL (0.2-1.3); BLOOD UREA NITROGEN 19 mg/dL (7-20); CALCIUM 9.8 mg/dL (8.4-10.2); CARBON DIOXIDE 29 mmol/L (22-30); CHLORIDE 103 mmol/L (98-107); GLUCOSE 80 mg/dL (75-110); LIPASE 186.3 U/L (23-300); POTASSIUM 4.4 mmol/L (3.6-5.0); SODIUM 144.1 mmol/L (137-145); TOTAL PROTEIN 7.7 g/dL (6.3-8.2)
[2018-07-12 20:14] LABS: APPEARANCE,URINE CLEAR; BILIRUBIN,URINE NEGATIVE (NEGATIVE); COLOR,URINE YELLOW; GLUCOSE, URINE NEGATIVE (NEGATIVE); KETONES,URINE NEGATIVE (NEGATIVE); LEUKOCYTE ESTERASE,URINE NEGATIVE (NEGATIVE); NITRITE,URINE NEGATIVE (NEGATIVE); PROTEIN,URINE NEGATIVE (NEGATIVE); URINE SPECIFIC GRAVITY 1.026; UROBILINOGEN,URINE NEGATIVE mg/dL (<2.0)
--- NOTE | 2018-07-12 21:08 | RADIOLOGY REPORT (SQ) ---
EXAM DESCRIPTION: CT ABD/PELVIS WITH IV ONLY COMPLETED DATE/TIME: 07/12/2018 8:50 pm REASON FOR STUDY: LLQ abd pain, h/o diverticulitis COMPARISON: 08/09/2017 TECHNIQUE: CT scan of the abdomen and pelvis performed using helical scanning technique with dynamic intravenous contrast injection. No oral contrast. Images reviewed with lung, soft tissue, and bone windows. Reconstructed coronal and sagittal MPR images reviewed. Delayed images for evaluation of the urinary system also acquired. All images stored on PACS. All CT scanners at this facility use dose modulation, iterative reconstruction, and/or weight based d osing when appropriate to reduce radiation dose to as low as reasonably achievable (ALARA). [facility]: Dose Right [facility]: CareDose [facility]: Dose Right [facility]: Teradose 4D [facility]: [email or web address] CONTRAST TYPE AND DOSE: contrast/concentration: Isovue 350.00 mg/ml; Total Contrast Delivered: 99.0 ml; Total Saline Delivered: 72.0 ml RENAL FUNCTION: BUN 19 creatinine 1.1 RADIATION DOSE: CT Rad equipment meets quality standard of care and radiation dose reduction techniq ues were employed. CTDIvol: 16.8 - 19.7 mGy. DLP: 1971 mGy-cm.. LIMITATIONS: None. FINDINGS: LOWER CHEST: No significant findings. No nodules or infiltrates. LIVER: There are multiple punctate low-density lesions in the liver that are too small to characteriz e but likely represent small cysts. SPLEEN: Normal size. No focal lesions. PANCREAS: No masses. No significant calcifications. No adjacent inflammation or peripancreatic fluid collections. Pancreatic duct not dilated. GALLBLADDER: No identified stones by CT criteria. No inflammatory changes to suggest cholecystitis. ADRENAL GLANDS: No significant masses or asymmetry. RIGHT KIDNEY AND URETER: No solid masses. No significant calcifications. No hydronephrosis or hyd roureter. LEFT KIDNEY AND URETER: No solid masses. No significant calcifications. No hydronephrosis or hydr oureter. AORTA AND VESSELS: No aneurysm. No dissection. Renal arteries, SMA, celiac without stenosis. RETROPERITONEUM: No retroperitoneal adenopathy, hemorrhage or masses. BOWEL AND PERITONEAL CAVITY: Mild diverticulosis with inflammatory changes associated with the proxim al sigmoid colon. No abscess is seen. APPENDIX: Surgically absent. PELVIS: No mass. No free fluid. Normal bladder. ABDOMINAL WALL: No masses. No hernias. BONES: No significant or acute findings. OTHER: No other significant finding. IMPRESSION: Sigmoid diverticulitis. TECHNICAL DOCUMENTATION: JOB ID: [id number] Quality ID # [id number]: Final reports with documentation of one or more dose reduction techniques (e.g., Au tomated exposure control, adjustment of the mA and/or kV according to patient size, use of iterative reconstruction technique) 2010 [employer]- All Rights Reserved Reading location - IP/workstation name: [email or web address]
[2018-07-12] MEDS ORDERED: METRONIDAZOLE 500 MG TABLET PO ONE ×2 (21:42→21:43)
[2018-07-12] MEDS ORDERED: AMOXICILLIN TR/POT CLAVULANATE 500-125 MG TAB PO ONE (21:42)
[2018-07-12 22:06] VITALS: BP 110/81
== END 2018-07-12 22:26 | disposition home or self-care (01) ==
LOC: ER 18:31
DX: K57.92 Diverticulitis of intestine, part unspecified, without perforation or abscess without bleeding (principal); R10.32 Left lower quadrant pain; R11.0 Nausea; K59.00 Constipation, unspecified
CPT/HCPCS: 96376; 99284; 96374; 96375; 36415; 83690; 85025; 80053; 81001; 74177; J1170; J2405